=== PATIENT | female | born 1970 | race Caucasian/White ===

== ENCOUNTER 2016-08-20 12:57 | Emergency (ER) | payer OTHER ==
[~2016-08-20 12:57] MED LIST: ALEVE220 MG PO; HYDROCHLOROT25 MG PO; NORCO1 TA2 PO; ULTRAM50 PO; ZOL100 PO
== END 2016-08-20 16:51 | disposition home or self-care (01) ==
LOC: ER 12:57
DX: S39.012A Strain of muscle, fascia and tendon of lower back, initial encounter (principal); Z88.8 Allergy status to other drugs, medicaments and biological substances; Z91.048 Other nonmedicinal substance allergy status; Z79.899 Other long term (current) drug therapy; X58.XXXA Exposure to other specified factors, initial encounter
CPT/HCPCS: 99283; A9270-GY